=== PATIENT | female | born 1950 | race Asian ===

== ENCOUNTER 2022-11-09 10:57 | Emergency (ER) | payer OTHER ==
[2022-11-09 11:23] VITALS: BP 139/82; PULSE 65; RESP 20; TEMP 98; BMI 27.2
[2022-11-09] MEDS ORDERED: AMOX TR/POT CLAV 875MG/125MG TABLETS (FP) PO ONE (11:46)
[2022-11-09] MEDS ORDERED: DIPHTH,PERTUSS(ACELL),TET 0.5 ML DISP.SYRIN IM ONE ×2 (11:46→11:48)
[2022-11-09] MEDS ORDERED: AMOX TR/POT CLAV 875MG/125MG TABLETS (FP) ONE (11:48)
== END 2022-11-09 12:03 | disposition home or self-care (01) ==
LOC: FER 10:57
PROC: 3E0234Z Introduction of Serum, Toxoid and Vaccine into Muscle, Percutaneous Approach (ICD-10-PCS; principal; 2022-11-09)
DX: S70.12XA Contusion of left thigh, initial encounter (principal); S71.152A Open bite, left thigh, initial encounter; W54.0XXA Bitten by dog, initial encounter
CPT/HCPCS: 90471; 90715; 99283-25